=== PATIENT | male | born 1995 | race Caucasian/White ===

== ENCOUNTER 2023-03-19 17:09 | Emergency (ER) | payer BC, OTHER ==
[2023-03-19 17:29] VITALS: BP 125/93; PULSE 78; RESP 18; TEMP 98.2; BMI 30.4
[2023-03-19] MEDS ORDERED: KETOROLAC TROMETHAMINE 60 MG/2 ML VIAL IM ONE (18:34)
[2023-03-19] MEDS ORDERED: CYCLOBENZAPRINE HCL 10 MG TABLET (FP) PO ONE (18:34)
[2023-03-19] MEDS ORDERED: KETOROLAC TROMETHAMINE 60 MG/2 ML VIAL ONE (18:42)
[2023-03-19] MEDS ORDERED: CYCLOBENZAPRINE HCL 5 MG TABLET ONE (18:42)
== END 2023-03-19 18:52 | disposition home or self-care (01) ==
LOC: FER 17:09
PROC: 3E0233Z Introduction of Anti-inflammatory into Muscle, Percutaneous Approach (ICD-10-PCS; principal; 2023-03-19)
DX: M54.50 Low back pain, unspecified (principal)
CPT/HCPCS: 72100-TC-FY; 99284-25

== ENCOUNTER 2023-05-02 11:55 | Emergency (ER) | payer BC ==
[2023-05-02 12:08] VITALS: BP 120/73; PULSE 87; RESP 20; TEMP 98.5; BMI 30.4
[2023-05-02] MEDS ORDERED: METHOCARBAMOL 500 MG TABLET PO ONE (12:21)
[2023-05-02] MEDS ORDERED: KETOROLAC TROMETHAMINE 15 MG/ML VIAL IM ONE (12:21)
[2023-05-02] MEDS ORDERED: METHOCARBAMOL 500 MG TABLET ONE (12:27)
[2023-05-02] MEDS ORDERED: KETOROLAC TROMETHAMINE 15 MG/ML VIAL ONE (12:28)
== END 2023-05-02 13:25 | disposition home or self-care (01) ==
LOC: FER 11:55
PROC: 3E0233Z Introduction of Anti-inflammatory into Muscle, Percutaneous Approach (ICD-10-PCS; principal; 2023-05-02)
DX: S39.012A Strain of muscle, fascia and tendon of lower back, initial encounter (principal); X50.0XXA Overexertion from strenuous movement or load, initial encounter; Y93.F2 Activity, caregiving, lifting
CPT/HCPCS: 99284-25

== ENCOUNTER 2024-09-18 00:08 | Emergency (ER) | payer BC ==
[2024-09-18 00:18] VITALS: BP 108/74; PULSE 71; RESP 20; TEMP 98.4; BMI 29.7
[2024-09-18] MEDS: IBUPROFEN 400 MG TABLET (FP) PO ONE (01:45)
[2024-09-18] MEDS ORDERED: IBUPROFEN 400 MG TABLET (FP) PO ONE (01:46)
== END 2024-09-18 02:51 | disposition home or self-care (01) ==
LOC: JER 00:08
DX: R05.9 Cough, unspecified (principal); J06.9 Acute upper respiratory infection, unspecified; R07.0 Pain in throat; M79.10 Myalgia, unspecified site; R51.9 Headache, unspecified; R53.83 Other fatigue; Z20.822 Contact with and (suspected) exposure to COVID-19
CPT/HCPCS: 0241U-QW; 71046-TC-FY; 87651; 99284-25

== ENCOUNTER 2025-01-18 22:42 | Emergency (ER) | payer BC ==
[2025-01-18 22:49] VITALS: BP 124/86; PULSE 90; RESP 16; TEMP 98.5; BMI 28.7
[2025-01-19 01:36] LABS: HIV INTERPRETATION NEGATIVE (NEGATIVE)
[2025-01-19 01:37] LABS: HCV DIAGNOSTIC IN-HOUSE W/RFLX NON-REACTIVE (NONREACTIVE)
== END 2025-01-19 00:08 | disposition home or self-care (01) ==
LOC: FER 22:42
DX: S00.03XA Contusion of scalp, initial encounter (principal); W21.19XA Struck by other bat, racquet or club, initial encounter
CPT/HCPCS: 36415; 70450-TC; 86803; 87389; 99284-25